=== PATIENT | female | born 1965 | race American Indian/Alaskan Native ===

== ENCOUNTER 2022-01-10 20:18 | Emergency (ER) | payer OTHER ==
[2022-01-10 20:48] VITALS: BP 122/90; PULSE 98
[2022-01-10] MEDS: Take Home: Acetaminophen/HYDROcodone 325-5 MG, 5 Tab Pack PO ONE (22:00)
== END 2022-01-10 22:06 | disposition home or self-care (01) ==
LOC: VM.ED 20:18
DX: C40.1 Malignant neoplasm of short bones of upper limb (principal); E03.9 Hypothyroidism, unspecified; I10 Essential (primary) hypertension; Z88.1 Allergy status to other antibiotic agents; Z79.899 Other long term (current) drug therapy
CPT/HCPCS: 73130-LT; 99283; 99284; A9270-GY

== ENCOUNTER 2023-10-16 08:46 | Emergency (ER) | payer OTHER ==
[2023-10-16 08:57] VITALS: BP 142/69; PULSE 79
[2023-10-17] MEDS ORDERED: cefTRIAXone 2 GM Vial IVPUSH ONE (04:36)
== END 2023-10-16 10:02 | disposition home or self-care (01) ==
LOC: VM.ED 08:46
DX: S93.401A Sprain of unspecified ligament of right ankle, initial encounter (principal); I10 Essential (primary) hypertension; E78.00 Pure hypercholesterolemia, unspecified; E03.9 Hypothyroidism, unspecified; F17.210 Nicotine dependence, cigarettes, uncomplicated; Z88.1 Allergy status to other antibiotic agents; Z79.890 Hormone replacement therapy; Z79.899 Other long term (current) drug therapy; W18.42XA Slipping, tripping and stumbling without falling due to stepping into hole or opening, initial encounter
CPT/HCPCS: 73610-RT; 99283